=== PATIENT | female | born 1950 | race Caucasian/White ===

== ENCOUNTER 2018-04-19 00:30 | Outpatient (CLI) | payer MEDICARE, BC, SELFPAY ==
--- NOTE | 2018-04-19 08:42 | DI.COMBO_ITS ---
SYMPTOM/DIAGNOSIS: LT BREAST MASS, N63.20 MAMMOGRAMS AND LEFT BREAST ULTRASOUND: Mammograms were interpreted according to the usual protocol including computer analysis with CAD system, tomosynthesis and C view imaging. Comparison is made with mammograms from [id number]. There is a question of a palpable abnormality in the left breast. The breasts are composed of scattered fibroglandular densities. No suspicious masses or suspicious microcalcifications are seen. There has been no significant change. Left breast ultrasound shows no evidence of a cyst or mass. IMPRESSION: Category 1B, negative mammogram and left breast ultrasound. Bilateral screening mammography is recommended yearly. [facility] [place] ASSESSMENT OF FINDINGS: Negative. Category 1. Patient will receive a letter notifying them of these results. BI-RADS category B. There are scattered areas of fibroglandular density.
== END 2018-04-19 00:50 ==
PROVIDERS: PCP Family Medicine; Visit Provider Family Medicine
DX: N63.20 Unspecified lump in the left breast, unspecified quadrant (principal); N60.82 Other benign mammary dysplasias of left breast; R92.8 Other abnormal and inconclusive findings on diagnostic imaging of breast
CPT/HCPCS: 76642; 77062; 77066; G0279

== ENCOUNTER 2019-06-11 01:41 | Outpatient (CLI) | payer MEDICARE, BC, SELFPAY ==
--- NOTE | 2019-06-11 09:40 | DI.MAMMO_ITS ---
EXAM: MAMMO SCREENING CLINICAL HISTORY: SCREENING Z12.31. TECHNIQUE: Full field digital CC and MLO mammographic images were obtained with 3D tomosynthesis and utilizing computer aided detection (CAD). COMPARISON: 2009 to 2017 FINDINGS: Breast density:Breast Density - Category B - Scattered areas of fibroglandular density Right breast: In the upper right breast, on the MLO view, there is an area of nodular asymmetry measu ring 15 millimeters not seen previously. This is not definitely identified on the CC view. No suspi cious calcifications are seen. Spot compression views and ultrasound are requested for further evalu ation. Left breast: Masses/Architectural Distortion: None seen. Microcalcifications: No suspicious pleomorphic-type calcifications are seen. Skin Thickening/Nipple Retraction: None. Axilla: Unremarkable. IMPRESSION: 1. Left breast: BI-RADS category 1, negative. No significant interval change with no specific featur es of malignancy noted. 2. Right breast: BI-RADS category 0. Spot compression views and ultrasound are requested for further evaluation of an area of nodularity in the superior right breast. BI-RADS Cat 0 - Assessment Incomplete: Need additional imaging evaluation Breast Density - Category B - Scattered areas of fibroglandular density A negative radiographic report should not delay biopsy if a dominant or clinically suspicious mass is present. Up to ten percent of cancers are not identified on mammography. A negative report may reinforce clinical impression. Adenosis and dense breasts may obscure an underlying neoplasm. False positive reports average 6 to 10%. Patient will receive a letter notifying them of these results.
== END 2019-06-11 02:01 ==
PROVIDERS: PCP Family Medicine; Visit Provider Family Medicine
DX: Z12.31 Encounter for screening mammogram for malignant neoplasm of breast (principal); R92.8 Other abnormal and inconclusive findings on diagnostic imaging of breast
CPT/HCPCS: 77063; 77067

== ENCOUNTER 2019-06-13 01:25 | Outpatient (CLI) | payer MEDICARE, BC, SELFPAY ==
--- NOTE | 2019-06-13 10:35 | DI.MAMMO_ITS ---
EXAM: US BREAST RT LIMITED CLINICAL HISTORY: AREA OF NODULAR ASYMMETRY MEASURING 15 MILLIMETERS IN UPPER RT BREAST NOT TECHNIQUE: Spot compression views with tomography were performed of the upper outer quadrant. Ultra sound performed using standard protocol. COMPARISON: Screening Bilat Mammo from 03/04/2015 R. Spot - Same Day from 03/30/2016 Screening Bilat Mammo from 04/20/2017 MG mammo diagnostic BI from 04/19/2018 MG MAMMO SCREENING from 06/11/2019 MG MAMMO SCREEN CALL BACK UNI from 06/13/2019 FINDINGS: Mammogram: The additional views show no evidence of a persistent mass. No architectural distortion is seen. The findings are consistent with overlying fibroglandular tissue. Right breast ultrasound: No cyst or mass is demonstrated. IMPRESSION: BI-RADS category 1, negative. Yearly screening mammography is recommended.
== END 2019-06-13 01:45 ==
PROVIDERS: PCP Family Medicine; Visit Provider Family Medicine
DX: Z12.31 Encounter for screening mammogram for malignant neoplasm of breast (principal); R92.8 Other abnormal and inconclusive findings on diagnostic imaging of breast; N63.11 Unspecified lump in the right breast, upper outer quadrant; N64.59 Other signs and symptoms in breast
CPT/HCPCS: 76642; 77063; 77067

== ENCOUNTER 2020-06-23 01:08 | Outpatient (CLI) | payer MEDICARE, BC, SELFPAY ==
--- NOTE | 2020-06-23 | DI.MAMMO_ITS ---
EXAM: MG MAMMO SCREENING CLINICAL HISTORY: SCREENING, Z12.31 TECHNIQUE: Bilateral full field digital CC and MLO mammographic images were obtained with 3D tomosyn thesis and utilizing computer aided detection (CAD). COMPARISON: Available for comparison. FINDINGS: Masses/Architectural Distortion: None seen. Microcalcifications: No suspicious pleomorphic-type are seen. Skin Thickening/Nipple Retraction: None. IMPRESSION: 1. No significant interval change with no specific features of malignancy noted. 2. Unless there is more urgent need, screening mammography is recommended, as per [place] guidelines. BI-RADS Category 1 - Negative Breast Density - Category B - Scattered areas of fibroglandular density Breast density category C or D implies that the patient has dense breast tissue. Dense breast tissue is very common and is not abnormal but dense breast tissue can make it harder to find cancer on a ma mmogram. Also, dense breast tissue may increase their breast cancer risk. This information about the result of the mammogram report was provided to the patient to raise their awareness. Use this report when you speak with the patient about their risks for breast cancer, which includes their family hist ory. At that time, you may recommend for more screening tests (Ultrasound or MRI) as they might be us eful based on their risk. A negative radiographic report should not delay biopsy if a dominant or clinically suspicious mass is present. Up to ten percent of cancers are not identified on mammography. A negative report may reinforce clinical impression. Adenosis and dense breasts may obscure an underlying neoplasm. False positive reports average 6 to 10%. Patient will receive a letter notifying them of these results.
== END 2020-06-23 01:09 | disposition home or self-care (01) ==
LOC: DI 01:09
PROVIDERS: PCP Family Medicine; Visit Provider Family Medicine
DX: Z12.31 Encounter for screening mammogram for malignant neoplasm of breast (principal)
CPT/HCPCS: 77063; 77067

== ENCOUNTER → 2021-08-14 00:29 | Outpatient (CLI) | payer MEDICARE, BC, SELFPAY ==
--- NOTE | 2021-08-14 11:40 | DI.MAMMO_ITS ---
Exam(s) MAMMO SCREENING EXAM: MAMMO SCREENING CLINICAL HISTORY: SCREENING, Z12.31 TECHNIQUE: Bilateral full field digital CC and MLO mammographic images were obtained with 3D tomosyn thesis and utilizing computer aided detection (CAD). COMPARISON: Available for comparison. FINDINGS: Masses/Architectural Distortion: None seen. Microcalcifications: No suspicious pleomorphic-type are seen. Skin Thickening/Nipple Retraction: None. IMPRESSION: 1. No significant interval change with no specific features of malignancy noted. 2. Unless there is more urgent need, screening mammography is recommended, as per [employer] guidelines. BI-RADS Category 1 - Negative Breast Density - Category B - Scattered areas of fibroglandular density Breast density category C or D implies that the patient has dense breast tissue. Dense breast tissue is very common and is not abnormal but dense breast tissue can make it harder to find cancer on a ma mmogram. Also, dense breast tissue may increase their breast cancer risk. This information about the result of the mammogram report was provided to the patient to raise their awareness. Use this report when you speak with the patient about their risks for breast cancer, which includes their family hist ory. At that time, you may recommend for more screening tests (Ultrasound or MRI) as they might be us eful based on their risk. A negative radiographic report should not delay biopsy if a dominant or clinically suspicious mass is present. Up to ten percent of cancers are not identified on mammography. A negative report may reinforce clinical impression. Adenosis and dense breasts may obscure an underlying neoplasm. False positive reports average 6 to 10%. Patient will receive a letter notifying them of these results.
== END ==
PROVIDERS: PCP Family Medicine; Visit Provider Family Medicine
DX: Z12.31 Encounter for screening mammogram for malignant neoplasm of breast (principal)
CPT/HCPCS: 77063; 77067

== ENCOUNTER → 2022-12-31 00:12 | Outpatient (CLI) | payer MEDICARE, BC, SELFPAY ==
--- NOTE | 2022-12-31 | DI.MAMMO_ITS ---
Exam(s) MAMMO SCREENING EXAM: MAMMO SCREENING CLINICAL HISTORY: SCREENING, Z12.31. TECHNIQUE: Bilateral full field digital CC and MLO mammographic images were obtained with 3D tomosyn thesis and utilizing computer aided detection (CAD). COMPARISON: Prior mammograms were reviewed. FINDINGS: There has been no significant change in the appearance and distribution of the fibroglandular tissue. There are no new spiculated masses nor malignant appearing microcalcification groups. There is no significant architectural distortion nor skin thickening-retraction. IMPRESSION: No radiographic evidence of malignancy. BI-RADS Category 1 - Negative Breast Density - Category A - Almost entirely fatty Breast density Category C or D implies that the patient has dense breast tissue. Dense breast tissue can make it harder to find cancer on a mammogram. Dense breast tissue is also associated with an incr eased risk of breast cancer. This information about the result of the mammogram report was provided to the patient to raise their awareness. Use this report when you speak with the patient about their risks for breast cancer, which includes their family history. At that time, you may recommend additional screening tests (Ultrasoun d or MRI) as these tests may add significant information. A negative radiographic report should not delay biopsy if a dominant or clinically suspicious mass is present. Up to ten percent of cancers are not identified on mammography. A negative report may reinforce clinical impression. Adenosis and dense breasts may obscure an underlying neoplasm. False positive reports average 6 to 10%. Patient will receive a letter notifying them of these results.
--- OUTSIDE RECORDS SUMMARY | 2022-12-31 00:15 | XMS_ITS | Patient Health Record ---
Author Name Unknown Organization [facility] Address [address], [place] [id number] Care Team Providers Care Sybase Developer Name Role Phone Nevaeh Guerra Primary Care Provider [phone] Talya Hernandez [phone] ALLERGIES Allergen (clinical drug ingredient) Drug/Non Drug Allergy documented on EMR Reaction Allergy Type Onset Date Status hydrochlorothiazide Hydrochlorothiazide dizziness D rug Allergy Active gemfibrozil Lopid myalgia Drug Allergy Active Substance with 4-zjvbntp-2-methylglutar yl-coenzyme A reductase inhibitor mechanism of action (substance) Statins (uncoded) myalgia Allergy Acti ve RESULTS Component Value Reference Range Notes CBC WITH MANUAL DIFF Reviewed date:10/13/2022 05:58:54 PM Interpretation: Performing Lab: Notes/Report: WBC 5.0 4.8-10.8 10^3/mm^3 RBC 4.64 3.90-5.03 10^6/mm^3 HGB 13.5 12.0-15.5 g/dL HCT 41 36-46 % MCV 87.5 81.0-99.0 fL MCH 29.1 27.1-32.0 pg MCHC 33 33-36 g/dL RDW 13.0 11.6-14.8 % PLATELETS 198 150-400 10^3/mm^3 MPV 8.7 6.0-10.0 fL %NEUTROPHIL 43 40-75 % %BAND 0 0-5 % %LYMPHOCYTE 47 20-45 % %MONOCYTE 8 2-10 % %EOSINOPHIL 2 1-6 % I-STAT TROPONIN (BACKUP) Reviewed date:10/13/2022 05:58:55 PM Interpretation: Performing Lab: Notes/Report: ITROP <0.03 CMP Reviewed date:10/13/2022 05:58:54 PM Interpretation: Performing Lab: Notes/Report: NA 141 136-145 mEq/L K 3.3 3.5-5.1 mEq/L CL 102 98-107 mEq/L CO2 24 21-31 mEq/L AGAP 17.8 GLU 131 70-100 mg/dL BUN 11 7-18 mg/dL CREAT 1.11 0.55-1.02 mg/dL BN/CR 9.5 CA 9.0 8.5-10.1 mg/dL ALKP 52 50-130 U/L ALT 29 14-59 U/L AST 26 15-37 U/L TBIL 0.5 <=1.2 mg/dL Use of Total Bi lirubin assay is not recommended for patients undergoing treatment with eltrombopag due to the potential for falsely elevated results. TP 7.5 6.4-8.2 g/dL ALB 4.1 3.4-5.0 g/dL GLOB 3.48 A/G 1.2 EGFRAA 58.73 EGFRNAA 48.45 GLUCOSE FINGERSTICK IH Reviewed date:11/03/2022 09:39:07 AM Interpretation:111 Performing Lab: Notes/Report: 111 GLUCOSE 111 70 - 125 mg/dl GLUCOSE GLUCOSE CHOLESTEC CHOLESTEROL Reviewed date:11/04/2022 08:35:11 AM Interpretation: Performing Lab: Notes/Report: CHOLESTEROL 280 0 - 200 mg/dl TRIGLYCERIDES 248 0 - 200 mg/dl HDL 36 40 - 60 mg/dl LDL 194 0 - 100 mg/dl NON-HDL 244 CHOLESTEROL/HDL RATIO 5.4 BMP Reviewed date:10/25/2022 03:56:58 PM Interpretation: Performing Lab:NL1, [facility], [address] [place] [address], [phone] Denisa Bear M.D. Notes/Report: FASTING: YES FASTING:YES Received Date: GLUCOSE 99 65-99 mg/dL Fasting reference interval UREA NITROGEN (BUN) 12 7-25 mg/dL CREATININE 0.88 0.60-1.00 mg/dL EGFR 70 > OR = 60 mL/min/1.73m2 The eGFR is based on the CKD-EPI 2020 equation. To calculate the new eGFR from a previous Creatinine or Cystatin C result, go to https://www.kidney.org/ professionals/ kdoqi/gfr%5Fcalculator BUN/CREATININE RATIO NOT APPLICABLE 6-22 (calc) SODIUM 139 135-146 mmol/L POTASSIUM 4.4 3.5-5.3 mmol/L CHLORIDE 103 98-110 mmol/L CARBON DIOXIDE 28 20-32 mmol/L CALCIUM 9.2 8.6-10.4 mg/dL REASON FOR REFERRAL No Information MEDICATIONS Medication SIG (Take, Route, Frequency, Duration) Notes Start Date End Date Status Omeprazole 20 MG TAKE 1 CAPSULE ONCE A DAY for 90 Active Crestor 5 MG 1/2 tablet Orally On ce a day for 30 days 11/03/2022 Active Tums 500 MG 2 tablets Orally Onc e a day as needed Active Fluticasone Propionate 50 MCG/ACT 2 sprays in each nostril Nasally Once a day for 90 days 02/09/2017 Active SOCIAL HISTORY Tobacco Use: Social History Observation Description Date Details (start date - stop date) Never Smoker NA - NA Sex Assigned At : Social History Observation Description Sex Assigned At Female SMOKING STATUS: Question Answer Notes Are you a: Nonsmoker PRAPARE Question Answer Notes Date Completed/Updated: 08/06/2021 What is your current housing situation? I have h ousing Are you worried about losing your housing? No What is the highest level of school that you have finished? More than high school What is your current work situation? Oth erwise unemployed but not seeking work (ex. 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 Check all that apply I do not have problems meeting my needs Has lack of transportation k ept you from medical appointments, meetings, work or from getting things needed for daily living? No How often do you see or talk to people that you care about and feel close to? (For example: talking to friends on the phone, visiting friends or family, going to scientology or club meetings) More than 5 times a week How stressed are you? Stress is when someone feels tense, nervous, anxious, or can't sleep at night because their mind is troubled Not at all In the past year have you sp ent more than 2 nights in a row in a [place] facility, alf, penitentiary center, or juvenile correctional facility? No Are you a refugee? No What country are you from? [place] Do you feel physically and e motionally safe where you currently live? Yes In the past year, have you b een afraid of your partner or ex-partner? No PRAPARE Score: 2 PROBLEMS Problem Type ICD Code Onset Dates Problem Status W/U Status Risk SNOMED Code Notes Problem Hypercholesterolemia (E78.0) Active confirmed Hypercholestero lemia (90545948) Problem Esophageal reflux (K21.9) Active confirmed 517713302 Problem Family history of colon cancer (Z80.0) Active confirmed 538889936 Problem Recurrent basal cell carcinoma (C44.91) Active confirmed 125676391 Problem Elevated BP without diagnosis of hypertension (R03.0) Active confirmed 274444093 Problem Hypercholesteremia (E78.00) Active confirmed Pure hypercholesterolemia (717163479) VITAL SIGNS Heart Rate 66 BPM 11/03/2022 Temperature 97 degrees Fahrenheit 11/03/2022 Respiratory Rate 16 /min 11/03/2022 Oximetry 98 % 11/03/2022 Blood pressure diastolic 84 mmHg 11/03/2022 Height 63 in 11/03/2022 Blood pressure systolic 138 mmHg 11/03/2022 Weight 186 lbs 11/03/2022 BMI 32.94 kg/m2 11/03/2022 PROCEDURES Procedure Date Ordered Date Performed Result Body Sit e GET UP AND GO TEST 11/03/2022 11/03/2022 Passed Encounters Encounter Location Date Provider Diagnosis [address] [id number] 03/31/2022 Nevaeh Guerra [address] [id number] 04/05/2022 Nevaeh Guerra [address] [id number] 05/18/2022 Nevaeh Guerra Acute non-recurrent maxillary sinusitis J01.[address] [id number] 10/12/2022 Nevaeh Guerra ER Visit ER [address] [id number] 10/15/2022 Nevaeh Guerra [address] [id number] 10/25/2022 Nevaeh Guerra [address] [id number] 11/26/2022 Nevaeh Guerra Encounter for screen ing mammogram for malignant neoplasm of breast Z12.[address] [id number] 11/03/2022 Nevaeh Guerra Annual physical exam Z00.00 ; Dietary counseling Z71.3 ; Encounter for screening mammogram for malignant neoplasm of breast Z12.31 ; Family history of colon cancer Z80.0 ; Hypercholesterolemia E78.0 ; Esophageal reflux K21.9 ; Syncope, unspecified syncope type R55 ; Screening for diabetes mellitus (DM) Z13.1 and Elevated BP without diagnosis of hypertension R03.[address] [id number] 02/11/2022 Nevaeh Guerra Encounter for immuni zation Z23 [address] [id number] 10/21/2022 Nevaeh Guerra Hypokalemia E87.[address] [id number] 03/31/2022 Talya Hernandez Sinusitis, unspecifi ed chronicity, unspecified location J32.9 ASSESSMENTS Encounter Date Diagnosis Assessment Notes Treatment Notes Treatment Clinical Notes 10/12/2022 ER Visit (ICD9-CM - ER) 10/21/2022 Hypokalemia (ICD-10 - E87.6) 11/26/2022 Encounter for screen ing mammogram for malignant neoplasm of breast (ICD-10 - Z12.31) 11/03/2022 Annual physical exam (ICD-10 - Z00.00) 05/18/2022 Acute non-recurrent maxillary sinusitis (ICD-10 - J01.00) 02/11/2022 Encounter for immunization (ICD-10 - Z23) Patient presents for flu shot. Screening questions reviewed with patient. There was no contraindication to patient receiving the flu shot today. Consent received prior to injection. Vaccine Information Sheet offered to patient. 03/31/2022 Sinusitis, unspecifi ed chronicity, unspecified location (ICD-10 - J32.9) 11/03/2022 Dietary counseling (ICD-10 - Z71.3) 11/03/2022 Encounter for screen ing mammogram for malignant neoplasm of breast (ICD-10 - Z12.31) 11/03/2022 Family history of co faby cancer (ICD-10 - Z80.0) 11/03/2022 Hypercholesterolemia (ICD-10 - E78.0) 11/03/2022 Esophageal reflux (ICD-10 - K21.9) 11/03/2022 Syncope, unspecified syncope type (ICD-10 - R55) 11/03/2022 Screening for diabet es mellitus (DM) (ICD-10 - Z13.1) 11/03/2022 Elevated BP without diagnosis of hypertension (ICD-10 - R03.0) 03/31/2022 Other Scribed for ANABELLE Naqvi, by Nancy Lovett, Virtual scribe. I, ANABELLE Eugene, have personally reviewed and agreed with the information entered by the Virtual scribe. 11/03/[address] Guerra by Gail Saravia, medical record assistant, on 11/03/2022. I, Dr. Guerra, have personally reviewed and agreed with the information entered by the medical record assistant. PLAN OF TREATMENT Pending Test Test Name Order Date MAMMOGRAM 11/26/2022 Insurance Providers Payer Name Payer Address Payer Phone Subscriber Number Group Number Insured Name Patient Relationship to Insured Coverage Start Date Coverage End Date MEDICARE F[employer] [address] [place] [address] [id number] Fernanda Richardson Self - patient is the insured 6 RICARDA RICHARD/BS [address] [place] [address] [id number] Fernanda Richardson Self - patient is the insured MEDICAL (GENERAL) HISTORY Medical History History ICD Code GERD, failed dose reduction omeprazole 2 021 Hypercholesterolemia Recurrent basal cells Strong family history of col on cancer. Hx tubular adenoma. Q3 year colonoscopy, due 2023 Vitreous detachment AD Full code, has living will, daughter Kristen is DPOA Mild osteopenia-DEXA 2016, T-score: -1.7 in L-spine Surgical History Surgery Date(Month/Year) ROMÁN-BSO 1990 Gall Bladder 1971 Bladder resuspension Mallet-finger repair 1997
== END ==
PROVIDERS: PCP Family Medicine; Visit Provider Family Medicine
DX: Z12.31 Encounter for screening mammogram for malignant neoplasm of breast (principal)
CPT/HCPCS: 77063; 77067

== ENCOUNTER 2024-03-08 01:34 | Outpatient (CLI) | payer MEDICARE, BC, SELFPAY ==
--- NOTE | 2024-03-08 | DI.DEXA_ITS ---
Exam(s) XR DEXA BONE DENSITY W/WO JERROD EXAM: XR DEXA BONE DENSITY W/WO JERROD CLINICAL HISTORY: Postmenopausal state, Z78.0 TECHNIQUE: COMPARISON: DX DEXA BONE DENSITY WITH JERROD from 04/20/2017 FINDINGS: Lateral Spine Image: Unremarkable. No compression deformities identified. Left hip: Total T-Score: -0.9. This compares to -0.7 on the prior examination. Total Z-Score: 0.8 T- and Z-scores: There is no evidence of osteoporosis. Note is made of osteopenia in the femoral nec k with a T-score of -2.0. Lumbar Spine: Total T-Score: -1.5. This compares to -1.7 on the prior examination. Total Z-Score: 0.7 T- and Z-scores: Findings are consistent with osteopenia. There is no evidence of osteoporosis. IMPRESSION: No evidence of osteoporosis.
--- NOTE | 2024-03-08 | DI.MAMMO_ITS ---
Exam(s) MAMMO SCREENING EXAM: MAMMO SCREENING CLINICAL HISTORY: Screening, Z12.39. TECHNIQUE: Bilateral full field digital CC and MLO mammographic images were obtained with 3D tomosyn thesis and utilizing computer aided detection (CAD). COMPARISON: Prior mammograms were reviewed. FINDINGS: There has been no significant change in the appearance and distribution of the fibroglandular tissue. There are no new spiculated masses nor malignant appearing microcalcification groups. Benign-appearing calcifications again bilaterally. There is no significant architectural distortion nor skin thickening-retraction. IMPRESSION: No radiographic evidence of malignancy. BI-RADS Category 1 - Negative Breast Density - Category B - Scattered areas of fibroglandular density Breast density Category C or D implies that the patient has dense breast tissue. Dense breast tissue can make it harder to find cancer on a mammogram. Dense breast tissue is also associated with an incr eased risk of breast cancer. This information about the result of the mammogram report was provided to the patient to raise their awareness. Use this report when you speak with the patient about their risks for breast cancer, which includes their family history. At that time, you may recommend additional screening tests (Ultrasoun d or MRI) as these tests may add significant information. A negative radiographic report should not delay biopsy if a dominant or clinically suspicious mass is present. Up to ten percent of cancers are not identified on mammography. A negative report may reinforce clinical impression. Adenosis and dense breasts may obscure an underlying neoplasm. False positive reports average 6 to 10%. Patient will receive a letter notifying them of these results.
== END 2024-03-08 01:54 ==
PROVIDERS: PCP Family Medicine; Visit Provider Family Medicine
DX: Z78.0 Asymptomatic menopausal state (principal); Z13.820 Encounter for screening for osteoporosis; Z12.31 Encounter for screening mammogram for malignant neoplasm of breast
CPT/HCPCS: 77063; 77067; 77080

== ENCOUNTER → 2025-03-22 03:17 | Outpatient (CLI) | payer MEDICARE, SELFPAY ==
--- NOTE | 2025-03-22 | DI.MAMMO_ITS ---
Exam(s) MAMMO SCREENING EXAM: MAMMO SCREENING CLINICAL HISTORY: BREAST CANCER SCREENING Z12.31 TECHNIQUE: Bilateral full field digital CC and MLO mammographic images were obtained with 3D tomosynthesis and utilizing computer aided detection (CAD). COMPARISON: Comparison is made with prior examinations. FINDINGS: Masses/Architectural Distortion: No suspicious masses or areas of architectural distortion are present. Microcalcifications: No suspicious pleomorphic-type are seen. Skin Thickening/Nipple Retraction: None. IMPRESSION: 1. No significant interval change with no specific features of malignancy noted. 2. Unless there is more urgent need, screening mammography is recommended, as per [place] guidelines. BI-RADS Category 1 - Negative Breast Density - Category B - There are scattered areas of fibroglandular density. Breast density Category C or D implies that the patient has dense breast tissue. Dense breast tissue can make it harder to find cancer on a mammogram. Dense breast tissue is also associated with an increased risk of breast cancer. This information about the result of the mammogram report was provided to the patient to raise their awareness. Use this report when you speak with the patient about their risks for breast cancer, which includes their family history. At that time, you may recommend additional screening tests (Ultrasound or MRI) as these tests may add significant information. A negative radiographic report should not delay biopsy if a dominant or clinically suspicious mass is present. Up to ten percent of cancers are not identified on mammography. A negative report may reinforce clinical impression. Adenosis and dense breasts may obscure an underlying neoplasm. False positive reports average 6 to 10%. Patient will receive a letter notifying them of these results.
== END ==
PROVIDERS: PCP Family Medicine; Visit Provider Family Medicine
DX: Z12.31 Encounter for screening mammogram for malignant neoplasm of breast (principal)
CPT/HCPCS: 77063; 77067